=== PATIENT | male | born 1940 | race Caucasian/White ===

== ENCOUNTER 2017-07-03 19:11 | Emergency (ER) | END 2017-07-03 20:35 | disposition home or self-care (01) | DX: S51.812A Laceration without foreign body of left forearm, initial encounter (principal); I25.10 Atherosclerotic heart disease of native coronary artery without angina pectoris; K21.9 Gastro-esophageal reflux disease without esophagitis; E78.5 Hyperlipidemia, unspecified; Z95.5 Presence of coronary angioplasty implant and graft; G20 Parkinson's disease; Z88.8 Allergy status to other drugs, medicaments and biological substances; W54.0XXA Bitten by dog, initial encounter; Y92.89 Other specified places as the place of occurrence of the external cause; Y93.89 Activity, other specified; Y99.8 Other external cause status ==

== ENCOUNTER 2018-03-23 14:29 | Emergency (ER) | payer MEDICARE, BC ==
[~2018-03-23] VITALS: Ht 177.8 cm; Wt 83.9 kg
[~2018-03-23 14:29] MED LIST: IMBRUVICA 140 MG
[2018-03-23] MEDS ORDERED: GABA600T2 PO (14:38)
[2018-03-23] MEDS ORDERED: ASPI81TA31 PO (14:38)
--- NOTE | 2018-03-23 15:52 | NUR ---
Patient discharged to home in stable conditon. Written and verbal after care instructions given. Patient verbalizes understanding of instructions.PT WITH CAREGIVER.
[2018-03-23 16:02] VITALS: BP 141/69
== END 2018-03-23 16:03 | disposition home or self-care (01) ==
LOC: ER 14:31
DX: S01.81XA Laceration without foreign body of other part of head, initial encounter (principal); S09.90XA Unspecified injury of head, initial encounter; K21.9 Gastro-esophageal reflux disease without esophagitis; Z88.8 Allergy status to other drugs, medicaments and biological substances; W01.0XXA Fall on same level from slipping, tripping and stumbling without subsequent striking against object, initial encounter; Y93.89 Activity, other specified; Y92.89 Other specified places as the place of occurrence of the external cause; Y99.8 Other external cause status
CPT/HCPCS: 70450; 99284; A4663